=== PATIENT | female | born 1955 | race Caucasian/White ===

== ENCOUNTER 2017-08-14 13:18 | Emergency (ER) | payer MEDICAID ==
[~2017-08-14] VITALS: Ht 162.6 cm; Wt 52.2 kg
[2017-08-14 13:45] VITALS: BP 143/86
[2017-08-14 14:15] VITALS: BP 143/86
--- NOTE | 2017-08-14 14:22 | Emergency Room Report ---
History of Present Illness General Chief Complaint: Wound Recheck/Suture Removal Source: Patient Present Illness Allergies: Coded Allergies: No Known Allergies (Unverified , 08/14/17) Patient History Last Menstrual Period: NA Nursing Documentation-PMH Past Medical History: No History, Except For Hx Asthma: Yes Hx Cerebrovascular Accident: Yes - no deficit Physical Exam Vital Signs Date Time Temp Pulse Resp B/P (MAP) Pulse Ox O2 Delivery O2 Flow Rate FiO2 08/14/17 13:26 98.0 90 20 143/86 99 Room Air 98.1 Medical Decision Making Last Vital Signs Date Time Temp Pulse Resp B/P (MAP) Pulse Ox O2 Delivery O2 Flow Rate FiO2 08/14/17 13:26 98.0 90 20 143/86 99 Room Air 98.1 Disposition: LEFT W/OUT BEING SEEN Condition: Unknown Ivan Waldron MD Aug 14, 2017 14:22
--- NOTE | 2017-08-14 14:35 | Emergency Room Report ---
History of Present Illness General Chief Complaint: Wound Recheck/Suture Removal Source: Patient Present Illness HPI The patient is a 62-year-old female who had recent incision and drainage of buttocks abscess. She reports having increased discharge from wound. Patient was noted to have had surgery at [facility]. She reports having some increased drainage from the wound. She states she been getting and IV antibiotics but is not currently been taking any antibiotics. The patient reports having generalized pain. The patient was seen by me in emergency department after returning Allergies: Coded Allergies: No Known Allergies (Unverified , 08/14/17) Patient History Past Medical History: see triage record Last Menstrual Period: NA Reviewed Nursing Documentation: PMH: Agreed; PSxH: Agreed Nursing Documentation-PMH Past Medical History: No History, Except For Hx Asthma: Yes Hx Cerebrovascular Accident: Yes - no deficit Review of Systems All Other Systems: negative except mentioned in HPI Physical Exam Vital Signs Date Time Temp Pulse Resp B/P (MAP) Pulse Ox O2 Delivery O2 Flow Rate FiO2 08/14/17 13:26 98.0 90 20 143/86 99 Room Air 98.1 General Appearance: well appearing, no apparent distress, alert, GCS 15 Head: normocephalic, atraumatic ENT: hearing grossly normal, normal voice Neck: full range of motion, supple Respiratory: no respiratory distress, speaking full sentences Gastrointestinal: normal inspection, normal bowel sounds, non tender, soft Musculoskeletal: normal inspection, no calf tenderness Neurologic: oriented x3, normal gait Psychiatric: normal inspection, mood/affect normal Skin: no rash, other - healing wound, very slight drainage Medical Decision Making Diagnostic Impression: Primary Impression: Encounter for postoperative wound check ER Course Patient presented for wound check. Differential diagnosis included was not limited to infected wound, nonhealed wound, neuroma, healed wound. Patient has a benign exam and does not appear to require any further imaging or laboratory testing at this time. The patient's wound appears to be the clean others no surrounding erythema. Patient has minimal discharge. We will start her on oral antibiotics. Last Vital Signs Date Time Temp Pulse Resp B/P (MAP) Pulse Ox O2 Delivery O2 Flow Rate FiO2 08/14/17 13:26 98.0 90 20 143/86 99 Room Air 98.1 Status: improved Disposition: HOME, SELF-CARE Condition: Stable Ivan Waldron MD Aug 14, 2017 14:35
[2017-08-14] MEDS ORDERED: CEPHALEXIN500 MG ORAL (14:37)
[2017-08-14] MEDS ORDERED: IBUPROFEN600 MG ORAL (14:37)
[2017-08-14] MEDS ORDERED: BACTRIM DS TAB1 EAC1 ORAL (14:37)
[2017-08-14] MEDS ORDERED: ACETAMINOPHEN500 M3 ORAL (14:39)
[2017-08-14] MEDS ORDERED: Acetaminophen 500mg (ES) tab ORAL ONE (14:45)
== END 2017-08-14 15:00 | disposition home or self-care (01) ==
LOC: EMR 15:00
DX: L02.31 Cutaneous abscess of buttock (principal); Z86.73 Personal history of transient ischemic attack (TIA), and cerebral infarction without residual deficits
CPT/HCPCS: 99282

== ENCOUNTER 2017-08-16 12:54 | Emergency (ER) | payer MEDICAID ==
[~2017-08-16] VITALS: Ht 167.6 cm; Wt 54.4 kg
[~2017-08-16 12:54] MED LIST: ACETAMINOPHEN500 M3 ORAL; BACTRIM DS TAB1 EAC1 ORAL; CEPHALEXIN500 MG ORAL; IBUPROFEN600 MG ORAL
[2017-08-16 14:04] LABS: BASOPHILS % (AUTO) 1.1 % (0.0-2.0); EOSINOPHILS % (AUTO) 6.4 % (0.0-3.0); HEMATOCRIT 38.9 % (37.0-47.0); HEMOGLOBIN 12.8 G/DL (12.0-16.0); MEAN CORPUSCULAR VOLUME 96 FL (80-99); MONOCYTES % (AUTO) 5.6 % (1.0-10.0); NEUTROPHILS % (AUTO) 61.9 % (45.0-75.0); PLATELET COUNT 419 K/UL (150-450); RED BLOOD COUNT 4.03 M/UL (4.20-5.40); RED CELL DISTRIBUTION WIDTH 14.2 % (11.6-14.8); WHITE BLOOD COUNT 12.2 K/UL (4.8-10.8)
[2017-08-16 14:14] LABS: ANION GAP 10 mmol/L (5-15); BLOOD UREA NITROGEN 18 mg/dL (7-18); CALCIUM 9.4 MG/DL (8.5-10.1); CARBON DIOXIDE 25 MMOL/L (21-32); CHLORIDE 102 MMOL/L (98-107); CREATININE 1.3 MG/DL (0.55-1.30); POTASSIUM 3.8 MMOL/L (3.5-5.1); SODIUM 137 MMOL/L (136-145)
[2017-08-16] MEDS ORDERED: Morphine Sulfate 4mg/ml Inj IVP ONE (14:15)
[2017-08-16 14:19] LABS: ALANINE AMINOTRANSFERASE 29 U/L (12-78); ALBUMIN 4.1 G/DL (3.4-5.0); ALBUMIN/GLOBULIN RATIO 0.9 (1.0-2.7); ALKALINE PHOSPHATASE 81 U/L (46-116); ASPARTATE AMINO TRANSFERASE 22 U/L (15-37); BILIRUBIN,TOTAL 0.2 MG/DL (0.2-1.0)
[2017-08-16 14:20] LABS: APPEARANCE,URINE CLEAR; BILIRUBIN, URINE NEGATIVE (NEGATIVE); COLOR,URINE PALE YELLOW; GLUCOSE, URINE (UA) NEGATIVE (NEGATIVE); KETONES,URINE NEGATIVE (NEGATIVE); LEUKOCYTE ESTERASE ,URINE 3+ (NEGATIVE); NITRITE,URINE NEGATIVE (NEGATIVE); PH,URINE 6 (4.5-8.0); PROTEIN,URINE NEGATIVE (NEGATIVE); UROBILINOGEN,URINE NORMAL MG/DL (0.0-1.0)
[2017-08-16] MEDS ORDERED: NORCO 5-325 TA1 EACH ORAL (14:52)
[2017-08-16 15:00] VITALS: BP 130/60
--- NOTE | 2017-08-16 15:09 | Consultation ---
History of Present Illness General Date patient seen: Aug 16, 2017 Chief Complaint: Wound Recheck/Suture Removal Reason for Consultation: wound Present Illness HPI 62 year old female states that she called ambulance to come to ED for wound check. States that a few weeks ago she developed cellulitis of left buttock and went to [facility] for evaluation. Was noted to have abscess and s/p I&D. states she was in hospital for almost 2 weeks and had a wound vac at one point. was discharged and suppose to follow up as an outpatient but decided to come to ED today via ambulance for evaluation / wound check. believes there is discharge from wound but unsure. poor historian and somewhat manipulative. surgery called to evaluate wound / surgical wound. patient seen, chart reviewed , patient examined. Allergies: Coded Allergies: No Known Allergies (Unverified , 08/14/17) Medication History Scheduled Cephalexin* (Keflex*), 500 MG ORAL EVERY 6 HOURS Trimethoprim/Sulfamethoxazole 160/800* (Bactrim Ds Tablet*), 1 TAB ORAL DAILY Scheduled PRN Acetaminophen* (Acetaminophen Extra Strength*), 500 MG ORAL Q8H PRN for Fever/ Headache/Mild Pain Hydrocodone Bit/Acetaminophen 5-325* ([place] 5-325*), 1 TAB ORAL Q6H PRN for For Pain Patient History History Provided By: Patient, Medical Record, PMD Healthcare decision maker Resuscitation status Advanced Directive on File Past Medical/Surgical History Past Medical/Surgical History: (1) Encounter for post surgical wound check (2) Cellulitis and abscess of buttock Review of Systems All Other Systems: negative except mentioned in HPI Physical Exam General Appearance: no apparent distress Lines, tubes and drains: peripheral HEENT: mucous membranes moist, PERRL Neck: normal inspection Respiratory/Chest: normal breath sounds Cardiovascular/Chest: normal rate Abdomen: soft, no mass Extremities: normal inspection Skin Exam: warm/dry, other - post surgical wound of left buttock clean, dry, healing. mild overlap of closure without perfect reapproximation but no signs of active infection , no drainage. Neurologic: alert, responsive Last 24 Hour Vital Signs Date Time Temp Pulse Resp B/P (MAP) Pulse Ox O2 Delivery O2 Flow Rate FiO2 08/16/17 14:14 98.8 08/16/17 12:44 98.8 94 16 134/78 98 Room Air 98.8 Laboratory Tests Test 08/16/17 13:30 White Blood Count 12.2 K/UL (4.8-10.8) H Red Blood Count 4.03 M/UL (4.20-5.40) L Hemoglobin 12.8 G/DL (12.0-16.0) Hematocrit 38.9 % (37.0-47.0) Mean Corpuscular Volume 96 FL (80-99) Mean Corpuscular Hemoglobin 31.8 PG (27.0-31.0) H Mean Corpuscular Hemoglobin Concent 32.9 G/DL (32.0-36.0) Red Cell Distribution Width 14.2 % (11.6-14.8) Platelet Count 419 K/UL (150-450) Mean Platelet Volume 5.6 FL (6.5-10.1) L Neutrophils (%) (Auto) 61.9 % (45.0-75.0) Lymphocytes (%) (Auto) 25.0 % (20.0-45.0) Monocytes (%) (Auto) 5.6 % (1.0-10.0) Eosinophils (%) (Auto) 6.4 % (0.0-3.0) H Basophils (%) (Auto) 1.1 % (0.0-2.0) Urine Color Pale yellow Urine Appearance Clear Urine pH 6 (4.5-8.0) Urine Specific [place] 1.015 (1.005-1.035) Urine Protein Negative (NEGATIVE) Urine Glucose (UA) Negative (NEGATIVE) Urine Ketones Negative (NEGATIVE) Urine Occult Blood Negative (NEGATIVE) Urine Nitrite Negative (NEGATIVE) Urine Bilirubin Negative (NEGATIVE) Urine Urobilinogen Normal MG/DL (0.0-1.0) Urine Leukocyte Esterase 3+ (NEGATIVE) H Urine RBC 5-10 /HPF (0 - 2) H Urine WBC 40-60 /HPF (0 - 2) H Urine Squamous Epithelial Cells Moderate /LPF (NONE/OCC) H Urine Bacteria Few /HPF (NONE) Sodium Level 137 MMOL/L (136-145) Potassium Level 3.8 MMOL/L (3.5-5.1) Chloride Level 102 MMOL/L (98-107) Carbon Dioxide Level 25 MMOL/L (21-32) Anion Gap 10 mmol/L (5-15) Blood Urea Nitrogen 18 mg/dL (7-18) Creatinine 1.3 MG/DL (0.55-1.30) Estimat Glomerular Filtration Rate 41.8 mL/min (>60) Glucose Level 88 MG/DL (74-106) Lactic Acid Level 0.80 mmol/L (0.4-2.0) Calcium Level 9.4 MG/DL (8.5-10.1) Total Bilirubin 0.2 MG/DL (0.2-1.0) Aspartate Amino Transf (AST/SGOT) 22 U/L (15-37) Alanine Aminotransferase (ALT/SGPT) 29 U/L (12-78) Alkaline Phosphatase 81 U/L (46-116) Total Protein 8.8 G/DL (6.4-8.2) H Albumin 4.1 G/DL (3.4-5.0) Globulin 4.7 g/dL Albumin/Globulin Ratio 0.9 (1.0-2.7) L Height (Feet): 5 Height (Inches): 6.00 Weight (Pounds): 120 Assessment/Plan Problem List: (1) Encounter for post surgical wound check ICD Codes: Z48.89 - Encounter for other specified surgical aftercare SNOMED: 905454175, [id number] (2) Cellulitis and abscess of buttock ICD Codes: L02.31 - Cutaneous abscess of buttock; L03.317 - Cellulitis of buttock SNOMED: 901114401 Status: stable Assessment/Plan hx of buttock abscess / cellulitis s/p I&D at outside facility. on exam today wound looks healing and without active infection. no drainage. dressings patient presented with are dry. no cellulitis. scar tissue noted forming. 1cm reapproximation gap between tissues but scar forming over. mild leukocytosis likely from uti -no surgical intervention needed -wound healing will take another few weeks for wound to be healed given not perfect reapproximation. she can see her surgeon to discuss scar revision if desired okay to d/c oral abx for uti follow up with her pcp or surgeon discussed how 911 is not the proper use for wound check Mohit Veras Aug 16, 2017 15:09
--- NOTE | 2017-08-17 14:31 | Emergency Room Report ---
History of Present Illness General Chief Complaint: Wound Recheck/Suture Removal Source: Patient, Medical Record, PMD Present Illness HPI 62-year-old female presents ED for evaluation of pain to left buttock. Brought in by EMS. States that she had surgery to her left buttock because of an infection at [facility] several weeks ago. Patient states she's been unable to follow up as outpatient. Came in 2 days ago because of chills and discharged from the site. Was seen here and subsequently discharged on antibiotics. Patient states she is compliant with the medication but states there is still draining and body aches and chills. Afebrile triage. Pain is sharp, 8 out of 10, nonradiating. No other aggravating relieving factors. Denies any other associated symptoms Allergies: Coded Allergies: No Known Allergies (Unverified , 08/14/17) Patient History Past Medical History: asthma Past Surgical History: none Pertinent Family History: none Social History: Denies: smoking, alcohol use, drug use Last Menstrual Period: n/a Now: No Immunizations: UTD Reviewed Nursing Documentation: PMH: Agreed; PSxH: Agreed Nursing Documentation-PMH Hx Asthma: Yes Hx Cerebrovascular Accident: Yes Review of Systems All Other Systems: negative except mentioned in HPI Physical Exam Vital Signs Date Time Temp Pulse Resp B/P (MAP) Pulse Ox O2 Delivery O2 Flow Rate FiO2 08/16/17 12:44 98.8 94 16 134/78 98 Room Air 98.8 Sp02 EP Interpretation: reviewed, normal General Appearance: no apparent distress, alert, GCS 15, non-toxic Head: normocephalic Eyes: bilateral eye normal inspection, bilateral eye PERRL ENT: normal ENT inspection Neck: normal inspection Respiratory: normal inspection Cardiovascular #1: normal inspection Gastrointestinal: normal inspection Rectal: deferred Genitourinary: no CVA tenderness Musculoskeletal: normal inspection Neurologic: alert, oriented x3, responsive, motor strength/tone normal, sensory intact, speech normal Psychiatric: judgement/insight normal, memory normal, mood/affect normal, no suicidal/homicidal ideation Skin: other - ost surgical wound of left buttock clean, dry, healing. mild overlap of closure without perfect reapproximation but no signs of active infection , no drainage Lymphatic: normal inspection Medical Decision Making Diagnostic Impression: Primary Impression: Encounter for post surgical wound check ER Course Hospital Course 62-year-old female presents to ED with discharge/pain from wound on L buttock Differential diagnoses include: Cellulitis, dermatitis, insect bite, abscess Clinical course Patient placed on stretcher. After initial history, physical exam reveals a female in no acute distress. On exam there is evidence of a poorly proximated surgical wound to the left buttock. Some overlap. However there is no signs of active infection. No discharge. No erythema or induration. We checked labs. Minimal leukocytosis, lactate okay. Electrolytes okay Wound culture obtained. Patient evaluated by surgery Dr. Veras; he agrees the patient can be safely discharged with close outpatient follow-up Patient was seen here 2 days ago. Was discharged on Keflex and Bactrim. Encouraged patient to continue this medications. Follow-up with surgeon at [facility] Diagnosis - encounter for post surgical wound check stable and discharged to home. continue bactrim, Keflex. Instructed to followup with surgery. Instructed return to ED if symptoms recur or worsen Labs Test 08/16/17 13:30 White Blood Count 12.2 K/UL (4.8-10.8) Red Blood Count 4.03 M/UL (4.20-5.40) Hemoglobin 12.8 G/DL (12.0-16.0) Hematocrit 38.9 % (37.0-47.0) Mean Corpuscular Volume 96 FL (80-99) Mean Corpuscular Hemoglobin 31.8 PG (27.0-31.0) Mean Corpuscular Hemoglobin Concent 32.9 G/DL (32.0-36.0) Red Cell Distribution Width 14.2 % (11.6-14.8) Platelet Count 419 K/UL (150-450) Mean Platelet Volume 5.6 FL (6.5-10.1) Neutrophils (%) (Auto) 61.9 % (45.0-75.0) Lymphocytes (%) (Auto) 25.0 % (20.0-45.0) Monocytes (%) (Auto) 5.6 % (1.0-10.0) Eosinophils (%) (Auto) 6.4 % (0.0-3.0) Basophils (%) (Auto) 1.1 % (0.0-2.0) Urine Color Pale yellow Urine Appearance Clear Urine pH 6 (4.5-8.0) Urine Specific [place] 1.015 (1.005-1.035) Urine Protein Negative (NEGATIVE) Urine Glucose (UA) Negative (NEGATIVE) Urine Ketones Negative (NEGATIVE) Urine Occult Blood Negative (NEGATIVE) Urine Nitrite Negative (NEGATIVE) Urine Bilirubin Negative (NEGATIVE) Urine Urobilinogen Normal MG/DL (0.0-1.0) Urine Leukocyte Esterase 3+ (NEGATIVE) Urine RBC 5-10 /HPF (0 - 2) Urine WBC 40-60 /HPF (0 - 2) Urine Squamous Epithelial Cells Moderate /LPF (NONE/OCC) Urine Bacteria Few /HPF (NONE) Sodium Level 137 MMOL/L (136-145) Potassium Level 3.8 MMOL/L (3.5-5.1) Chloride Level 102 MMOL/L (98-107) Carbon Dioxide Level 25 MMOL/L (21-32) Anion Gap 10 mmol/L (5-15) Blood Urea Nitrogen 18 mg/dL (7-18) Creatinine 1.3 MG/DL (0.55-1.30) Estimat Glomerular Filtration Rate 41.8 mL/min (>60) Glucose Level 88 MG/DL (74-106) Lactic Acid Level 0.80 mmol/L (0.4-2.0) Calcium Level 9.4 MG/DL (8.5-10.1) Total Bilirubin 0.2 MG/DL (0.2-1.0) Aspartate Amino Transf (AST/SGOT) 22 U/L (15-37) Alanine Aminotransferase (ALT/SGPT) 29 U/L (12-78) Alkaline Phosphatase 81 U/L (46-116) Total Protein 8.8 G/DL (6.4-8.2) Albumin 4.1 G/DL (3.4-5.0) Globulin 4.7 g/dL Albumin/Globulin Ratio 0.9 (1.0-2.7) Last Vital Signs Date Time Temp Pulse Resp B/P (MAP) Pulse Ox O2 Delivery O2 Flow Rate FiO2 08/16/17 15:00 98.6 76 20 130/60 100 Room Air 209.8 Status: improved Disposition: HOME, SELF-CARE Condition: Stable Scripts Hydrocodone Bit/Acetaminophen 5-325* ([place] 5-325*) 1 Each Tablet 1 TAB ORAL Q6H PRN for For Pain, #10 TAB 0 Refills Prov: Claudio Cardozo MD 08/16/17 Referrals: NOT CHOSEN IPA/,REFERRING Patient Instructions: Wound Check Additional Instructions: followup with your surgeon at [facility]. continue antibiotics as prescribed. Claudio Cardozo MD Aug 17, 2017 14:31
== END 2017-08-16 15:00 | disposition home or self-care (01) ==
LOC: EDBD 12:54 → EMR 13:30
DX: L03.317 Cellulitis of buttock (principal); Z48.01 Encounter for change or removal of surgical wound dressing; J45.909 Unspecified asthma, uncomplicated; Z86.73 Personal history of transient ischemic attack (TIA), and cerebral infarction without residual deficits
CPT/HCPCS: 36415; 80053; 81003; 83605; 85025; 87040; 87070; 87086; 87205; 96361; 96374; 99283; J2270